=== PATIENT | male | born 1980 | race Caucasian/White ===

== ENCOUNTER 2023-04-19 11:27 | Emergency (ER) | payer OTHER, SELFPAY ==
--- NOTE | 2023-04-19 12:22 | ED_ITS ---
HPI - Chest Pain General Chief Complaint: Chest Pain Stated Complaint: CP,DIFF BREATHING Related Data Allergies Allergy/AdvReac Type Severity Reaction Status Date / Time No Known Allergies Allergy Verified 04/19/23 12:23 [facility] Social History Social History Advance Directives: No Advance Directives Information Provided: No Physical Exam 2 Vital Signs: Vital Signs: Last Vital Signs Temp 98.3 F 04/19/23 12:23 Pulse 104 H 04/19/23 12:23 Resp 16 04/19/23 12:23 BP 99/78 04/19/23 12:23 Pulse Ox 96 04/19/23 12:23 O2 Del Method Room Air 04/19/23 12:23 BMI result Body Mass Index 30.9 Course Course Course Narrative: This is a rapid medical exam. Deferred additional HPI, ROS, PE to primary provider. 43 yo male with history of FLOWER here with waking with chest pain, shortness of breath and cough. Will obtain labs, EKG, CXR, viral testing VSS Medical Decision Making Lab Data 04/19/23 11:45 04/19/23 11:45 Labs: Lab Results 04/19/23 Range/Units 11:45 WBC 16.9 H (4.8-10.8) X10*3/uL RBC 5.02 (4.60-5.80) X10*6/uL Hgb 15.9 (14.0-18.0) g/dl Hct 43.7 (42.0-52.0) % MCV 87.1 (80.0-98.0) fL MCH 31.7 (27.0-33.0) pg MCHC 36.4 H (31.0-36.0) g/dl RDW 12.9 (11.0-16.0) % Plt Count 281 (160-400) X10*3/uL MPV 10.0 (9.4-12.4) fL Immature Gran % (Auto) 0.3 (0.0-0.4) % Neut % (Auto) 73.3 H (45-73) % Lymph % (Auto) 19.4 L (20-40) % [place] % (Auto) 6.9 (2-11) % Eos % (Auto) 0.0 (0-4) % Baso % (Auto) 0.1 (0-2) % Lymph # (Auto) 3.3 (1.2-4.9) X10*3/uL [place] # (Auto) 1.2 (0.1-1.2) X10*3/uL Eos # (Auto) 0.0 (0.0-0.4) X10*3/uL Baso # (Auto) 0.0 (0.0-0.2) X10*3/uL Abs Immat Gran (auto) 0.05 H (0.00-0.03) X10*3/uL Absolute Neuts (auto) 12.4 H (2.0-8.3) x10*3/uL Absolute Nucleated RBC 0.000 (0.0-0.012) X10*3/uL Nucleated RBC % (auto) 0.0 (0.0-0.2) /100WBC Sodium 139 (135-145) mmol/L Potassium 3.4 (3.3-5.1) mmol/L Chloride 106 (96-108) mmol/L Carbon Dioxide 23 (22-29) mmol/L Anion Gap 13 (12-20) BUN 14 (9-16) mg/dL Creatinine 1.01 (0.5-1.4) mg/dL Estim Creat Clear Calc TNP Estimated GFR > 60 Random Glucose 121 H (60-115) mg/dL Calcium 9.8 (8.4-10.2) mg/dL Total Bilirubin 0.6 (0.0-1.0) mg/dL Direct Bilirubin 0.2 (0.0-0.5) mg/dL AST 24 (5-37) U/L ALT 20 (0-40) U/L Alkaline Phosphatase 75 (39-117) U/L Troponin I High Sens 5.6 (<3.5-35.0) ng/L B-Natriuretic Peptide < 10 (<100) pg/mL Total Protein 7.7 (6.5-8.0) g/dL Albumin 4.5 (3.5-5.0) g/dL COVID-19 (REAL) Negative (Negative) COVID-19 Clin Com See Note Influenza Type A (ANSELMO) Negative (Negative) Influenza Type B (ANSELMO) Negative (Negative) Influenza A & B Note See Note Discharge Plan Discharge Clinical Impression: Chest pain Patient Disposition: Left W/O Completing Treatment Discharge Date/Time: 04/19/23 18:44
[2023-04-19 12:23] VITALS: BP 99/78; PULSE 104; RESP 16; TEMP 36.8; O2SAT 96; BMI 30.9
== END 2023-04-19 18:44 | disposition left against medical advice (07) ==
PROVIDERS: Emergency Provider Emergency Medicine
DX: R07.9 Chest pain, unspecified (principal); R06.02 Shortness of breath; Z20.822 Contact with and (suspected) exposure to COVID-19; Z20.828 Contact with and (suspected) exposure to other viral communicable diseases
CPT/HCPCS: 71046; 80048; 80076; 83880; 84484; 85025; 87502; 87635; 93005; 99283

== ENCOUNTER → 2023-04-19 11:31 | Outpatient (BNV) | payer OTHER, SELFPAY | PROVIDERS: Emergency Provider Emergency Medicine; Visit Provider Internal Medicine Cardiovascular Disease | DX: R00.0 Tachycardia, unspecified (principal) | CPT/HCPCS: 93010 ==

== ENCOUNTER 2023-11-13 11:12 | Emergency (ER) | payer OTHER, SELFPAY ==
--- NOTE | ~2023-11-13 | XR_ITS ---
EXAMINATION: XR HAND AND FIRST AND SECOND DIGITS, RIGHT CLINICAL INFORMATION: Laceration to first and second digits COMPARISON: None available. TECHNIQUE: Single view hand +2 additional views of the first and second digit. FINDINGS: The bones and soft tissues are unremarkable aside from some mild soft tissue swelling around the DIP joint of the first digit and the PIP joint of the second digit. No fracture. Alignment is anatomic. Joint spaces are maintained. No radiopaque foreign body is seen. XR/XR finger RT min 2V IMPRESSION: Soft tissue swelling around the DIP joint of the first digit and PIP joint of the second digit. No fracture or radiopaque foreign body.
--- NOTE | ~2023-11-13 | XR_ITS ---
EXAMINATION: XR CHEST CLINICAL INFORMATION: Dizziness COMPARISON: 04/19/2023 TECHNIQUE: 2 views of the chest were obtained. FINDINGS: No significant abnormality is noted involving the heart, lungs, mediastinum or soft tissues. 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 Comparison is made to the prior study there has been no significant interval change. XR/XR chest 2V IMPRESSION: No acute intrathoracic disease
--- NOTE | ~2023-11-13 | XR_ITS ---
EXAMINATION: XR HAND AND FIRST AND SECOND DIGITS, RIGHT CLINICAL INFORMATION: Laceration to first and second digits COMPARISON: None available. TECHNIQUE: Single view hand +2 additional views of the first and second digit. FINDINGS: The bones and soft tissues are unremarkable aside from some mild soft tissue swelling around the DIP joint of the first digit and the PIP joint of the second digit. No fracture. Alignment is anatomic. Joint spaces are maintained. No radiopaque foreign body is seen. XR/XR finger RT min 2V IMPRESSION: Soft tissue swelling around the DIP joint of the first digit and PIP joint of the second digit. No fracture or radiopaque foreign body.
[2023-11-13 11:16] VITALS: BP 123/91; PULSE 93; RESP 18; TEMP 36.9; O2SAT 97; BMI 29.3
--- NOTE | 2023-11-13 11:18 | ED.GENADULT ---
HPI - General Adult General Chief complaint: Dizziness Stated complaint: Dizziness, blurred vision Time Seen by Provider: 11/13/23 12:10 Source: patient Mode of arrival: ambulatory Limitations: no limitations History of Present Illness ED Provider: Dr. Antonio Robles HPI narrative: 43 year old female PMH: Significant for family history of diabetes he presents to the emergency department with multiple complaints. He states his right thumb is painful he has been taking Tylenol without relief of symptoms he has noted that he has got infected. He is concerned that he has diabetes as it has been slow for him to heal wounds that have been happening. He states that also he experiences dizziness when he 1st gets up as well when he turns his head quickly. He denies any does have time he denies any chest pain shortness of breath he states eating and drinking normally. He was told by his primary care doctor he states to come to the ER 3 days ago. He was at [employer] today walking around he felt dizzy she came into the ER. Patient states the dizziness is he feels like the room is spinning he denies feeling lightheaded Related Data Previous Rx's ?Medication ?Instructions ?Recorded acetaminophen 325 mg tablet 325 mg PO QID PRN pain #90 tabs 11/13/23 (Tylenol) doxycycline hyclate 100 mg capsule 100 mg PO BID Cellulitis #20 caps 11/13/23 indomethacin 25 mg capsule 25 mg PO BID finger pain #14 caps 11/13/23 Allergies Allergy/AdvReac Type Severity Reaction Status Date / Time No Known Allergies Allergy Verified 11/13/23 11:24 Review of Systems Review of Systems: Review of systems: Neurological dizziness General: Patient denies any fever chills recent illness or falls Musculoskeletal: Denies back pain or body aches or other injuries HEENT: denies headache, runny nose, ear pain Respiratory: denies shortness of breath, cough Cardiovascular: no chest pain or palpitations : denies dysuria, frequency Abdomen: no nausea vomiting denies abdominal pain Extremities: Right thumb pain Skin: no diaphoresis Yes all other systems are reviewed and are negative [facility] Social History Social History Advance Directives: No Advance Directives Information Provided: Yes Do you have a plan to hurt others: No Plan Physical Exam ED Vital Signs: Vital Signs - 24 hr 11/13/23 11:16 Temperature 98.5 F Pulse Rate 93 Respiratory Rate 18 Blood Pressure 123/91 H Pulse Oximetry 97 Oxygen Delivery Method Room Air BMI result Body Mass Index 29.3 Course Course Course Narrative: This is a Rapid Medical Examination (RME) performed by Jody Araujo PA-C in triage. Full HPI, ROS, assessment and treatment plan per primary provider in the Main ED. 43 yo male hx of FLOWER on CPAP here for dizziness (room spinning sensation) on standing, changing positions, and making quick head movements x2 weeks. admits to blurred vision when dizziness resolves. No n/v, chest pain, sob. reports family hx of DM and is concerned about this. Also reports small laceration to right 3rd digit sustained 4 days ago while working on his car. admits to increased swelling and discharge from the wound. pain extends up the arm. tetanus not UTD. + exam nonfocal. cerebellum intact. walking w/ steady gait. lac noted to right first digit with noted swelling Plan: labs, UA, XR, +/- head imaging per primary provider Medical Decision Making Medical Decision Making MDM Narrative: Patient has vague complaint of dizziness unsure what is causing this states he was ambulating when he cessation he does not have a sensation here he has been ambulatory here neuro exam is completely benign I do not think this is stroke or anything that needs further imaging I will start the patient doxycycline he has patient states go home we will get a note for work for his finger. Differential Diagnosis Differential Diagnoses: The differential diagnosis associated with the presentation includes Electrolyte abnormality diabetes cellulitis infection weakness dehydration cellulitis of finger Admission/Observation Consideration of admission/observation: Escalation of care including admission/observation considered Lab Data [facility] Lab Attestation statement: I reviewed the patient's lab results. 11/13/23 11:39 11/13/23 11:39 Labs: Lab Results 11/13/23 11/13/23 Range/Units 11:39 11:47 WBC 13.8 H (4.8-10.8) X10*3/uL RBC 5.01 (4.60-5.80) X10*6/uL Hgb 15.7 (14.0-18.0) g/dl Hct 45.6 (42.0-52.0) % MCV 91.0 (80.0-98.0) fL MCH 31.3 (27.0-33.0) pg MCHC 34.4 (31.0-36.0) g/dl RDW 13.1 (11.0-16.0) % Plt Count 289 (160-400) X10*3/uL MPV 10.3 (9.4-12.4) fL Immature Gran % (Auto) 0.4 (0.0-0.4) % Neut % (Auto) 74.9 H (45-73) % Lymph % (Auto) 17.4 L (20-40) % [place] % (Auto) 6.5 (2-11) % Eos % (Auto) 0.5 (0-4) % Baso % (Auto) 0.3 (0-2) % Lymph # (Auto) 2.4 (1.2-4.9) X10*3/uL [place] # (Auto) 0.9 (0.1-1.2) X10*3/uL Eos # (Auto) 0.1 (0.0-0.4) X10*3/uL Baso # (Auto) 0.0 (0.0-0.2) X10*3/uL Abs Immat Gran (auto) 0.05 H (0.00-0.03) X10*3/uL Absolute Neuts (auto) 10.3 H (2.0-8.3) x10*3/uL Absolute Nucleated RBC 0.000 (0.0-0.012) X10*3/uL Nucleated RBC % (auto) 0.0 (0.0-0.2) /100WBC PT 11.8 (11.1-13.3) SEC INR 1.0 (0.9-1.1) Sodium 139 (135-145) mmol/L Potassium 4.1 (3.3-5.1) mmol/L Chloride 107 (96-108) mmol/L Carbon Dioxide 23 (22-29) mmol/L Anion Gap 13 (12-20) BUN 12 (9-16) mg/dL Creatinine 0.92 (0.5-1.4) mg/dL Estim Creat Clear Calc 99.8 Estimated GFR > 60 Random Glucose 148 H (60-115) mg/dL Calcium 9.5 (8.4-10.2) mg/dL Magnesium 2.3 (1.6-2.6) mg/dL Total Bilirubin 0.2 (0.0-1.0) mg/dL AST 14 (5-37) U/L ALT 18 (0-40) U/L Alkaline Phosphatase 92 (39-117) U/L Troponin I High Sens < 2.7 D (<3.5-35.0) ng/L Total Protein 7.7 (6.5-8.0) g/dL Albumin 4.1 (3.5-5.0) g/dL Urine Color Yellow Urine Appearance Clear Urine pH 5.5 (5.0-9.0) Ur Specific [place] >= 1.030 H (1.005-1.025) Urine Protein 30 (1+) H (Neg-Trace) mg/dL Urine Glucose (UA) 100 H (Negative) mg/dL Urine Ketones Trace (Negative) mg/dL Urine Blood Negative (Negative) Urine Nitrite Negative (Negative) Ur Leukocyte Esterase Trace H (Negative) Urine RBC 0-2 (0-2) /HPF Urine WBC 0-5 (0-5) /HPF Ur Squamous Epith Cells 0-2 (0-2) /HPF Urine Bacteria None Seen (None Seen) Hyaline Casts 3-5 (0-2) /LPF Independent Interpretation I performed an independent interpretation of an: Plain X-Ray External Record Review External record reviewed: Inpatient record and Office record Discharge Plan Discharge Clinical Impression: Acute cellulitis, Dizziness Patient Disposition: Home, Self-Care Instructions: Cellulitis (DC), Vertigo (DC), Dizziness (ED) Additional Instructions: You seen in the emergency department for your finger slow wound healing concern for diabetes as well as having intermittent dizziness. You had labs done which showed there are no signs of diabetes x-ray of the hand and chest. I started you on antibiotic please take that as prescribed Prescriptions: New acetaminophen [Tylenol] 325 mg tablet 325 mg PO QID PRN (Reason: pain) Qty: 90 0RF indomethacin 25 mg capsule 25 mg PO BID Qty: 14 0RF Rx Instructions: administer with food or milk doxycycline hyclate 100 mg capsule 100 mg PO BID Qty: 20 0RF Stand Alone Forms: Work/School Release Print Language: Thai
--- NOTE | 2023-11-13 11:24 | ECG_ITS ---
Test Reason : dizziness Blood Pressure : / mmHG Vent. Rate : 085 BPM Atrial Rate : 085 BPM P-R Int : 176 ms QRS Dur : 092 ms QT Int : 342 ms P-R-T Axes : 051 043 026 degrees QTc Int : 406 ms Normal sinus rhythm Normal ECG When compared with ECG of 19-APR-2023 11:35, No significant change was found Referred By: Ivone Araujo Electronically Signed By:Phillip Pedraza
[2023-11-13 11:46] LABS: MANUAL DIFF FLAG NO
[2023-11-13 11:51] LABS: Basophils Percent Auto 0.3 % (0-2); Eosinophils Absolute Auto 0.1 X10*3/uL (0.0-0.4); Eosinophils Percent Auto 0.5 % (0-4); Hematocrit 45.6 % (42.0-52.0); Hemoglobin 15.7 g/dl (14.0-18.0); Imm Gran Abs Auto 0.05 X10*3/uL (0.00-0.03); Imm Gran Pct Auto 0.4 % (0.0-0.4); Lymphocytes Absolute Auto 2.4 X10*3/uL (1.2-4.9); Lymphocytes Percent Auto 17.4 % (20-40); Mean Corpuscular HGB Conc 34.4 g/dl (31.0-36.0); Mean Corpuscular Hemoglobin 31.3 pg (27.0-33.0); Mean Platelet Volume 10.3 fL (9.4-12.4); Monocytes Absolute Auto 0.9 X10*3/uL (0.1-1.2); Monocytes Percent Auto 6.5 % (2-11); Neutrophils Absolute Auto 10.3 x10*3/uL (2.0-8.3); Neutrophils Percent Auto 74.9 % (45-73); Platelet Count 289 X10*3/uL (160-400); Red Blood Count 5.01 X10*6/uL (4.60-5.80); Red Cell Distribution Width 13.1 % (11.0-16.0); White Blood Count 13.8 X10*3/uL (4.8-10.8)
[2023-11-13 11:54] LABS: Appearance Urine Clear; Color Urine Yellow; Glucose Urine UA 100 mg/dL (Negative); Leukocyte Esterase Urine Trace (Negative); Nitrite Urine Negative (Negative); PH 5.5 (5.0-9.0); Specific Gravity - Urine >= 1.030 (1.005-1.025); UMIC TRIGGER UACC YES; Urine Blood Negative (Negative); Urine Ketones Trace mg/dL (Negative); Urine Protein 30 (1+) mg/dL (Neg-Trace)
[2023-11-13 11:57] LABS: Prothrombin Time 11.8 SEC (11.1-13.3)
[2023-11-13 12:00] LABS: Bacteria Urine None Seen (None Seen); RBC Urine 0-2 /HPF (0-2); Squamous Epithelial Cell Urine 0-2 /HPF (0-2); WBC Urine 0-5 /HPF (0-5)
[2023-11-13 12:01] LABS: Alanine Aminotransferase 18 U/L (0-40); Albumin Level 4.1 g/dL (3.5-5.0); Alkaline Phosphatase 92 U/L (39-117); Anion Gap 13 (12-20); Aspartate Amino Transferase 14 U/L (5-37); Bilirubin Total 0.2 mg/dL (0.0-1.0); Blood Urea Nitrogen 12 mg/dL (9-16); Calcium 9.5 mg/dL (8.4-10.2); Carbon Dioxide 23 mmol/L (22-29); Chloride 107 mmol/L (96-108); Creatinine Clr Calc Pharmacy 99.8; Estimated Glomerular Filt Rate > 60; Glucose Random 148 mg/dL (60-115); Magnesium 2.3 mg/dL (1.6-2.6); Potassium 4.1 mmol/L (3.3-5.1); Sodium 139 mmol/L (135-145); Total Protein 7.7 g/dL (6.5-8.0)
[2023-11-13 12:08] LABS: Troponin-I High Sensitivity < 2.7 ng/L (<3.5-35.0)
[2023-11-13 13:29] VITALS: BP 123/91; PULSE 93; RESP 18; TEMP 36.9; O2SAT 97
== END 2023-11-13 13:30 | disposition home or self-care (01) ==
PROVIDERS: Physician Assistant Medical; Emergency Provider Student in an Organized Health Care Education/Training Program; PCP Internal Medicine
DX: L03.011 Cellulitis of right finger (principal); R42 Dizziness and giddiness; E11.9 Type 2 diabetes mellitus without complications
CPT/HCPCS: 36415; 71046; 73140; 80053; 81001; 83735; 84484; 85025; 85610; 93005; 99283

== ENCOUNTER → 2023-11-13 11:24 | Outpatient (BNV) | payer OTHER, SELFPAY | PROVIDERS: Emergency Provider Student in an Organized Health Care Education/Training Program; PCP Internal Medicine; Visit Provider Internal Medicine Cardiovascular Disease | DX: R42 Dizziness and giddiness (principal) | CPT/HCPCS: 93010 ==